=== PATIENT | male | born 2005 | race Caucasian/White ===

== ENCOUNTER 2024-04-06 11:32 | Emergency (ER) | payer OTHER, SELFPAY ==
[2024-04-06 11:33] VITALS: BP 139/79
--- NOTE | 2024-04-06 12:48 | ED.MUSCINJ ---
HPI-Injury
General
Chief Complaint: Musculo-Skeletal Complaint
Source: patient
Time Seen by Provider: 04/06/24 12:38
History of Present Illness-Injury
Initial Injury comments:
19yo right hand dominant male presenting for evaluation of left wrist pain x 1 day. He was in the pool on a floating device when his friend jumped in the pool and landed on his wrist. He has been having persistent pain since that time. Pain is
primarily located at the base of the thumb. No paresthesias. He denies other injuries.
Phy Exam
Physical Exam
Physical Exam:
Left wrist: No deformity or skin changes. +Tenderness at baseline of thumb and snuffbox. ROM of thumb intact but pain is elicited with thumb extension. ROM of wrist intact. Normal sensation and motor function intact in radial, ulnar, and median
nerve distributions. 2+ radial pulse.
General Physical Exam
General Presentation: well appearing and no apparent distress
General age: appears stated age
General Skin: warm and dry
General Habitus: normal
General Mental: alert
Injury Course
Orders/Labs/Results
Orders:
Orders
04/06/24 11:36
Wrist, Left 3 Views CR [CR Wrist - Left Min 3 Views] Urgent
Comment:
Reason For Exam: injury
04/06/24 12:47
Thumb Spica Left-Treatment ONCE
Nursing to Place Non Medication Order As Directed
Physician Order: Please apply velcro thumb spica brace to L wrist
Above order entered?: Yes
MDM/Problems Addressed
Differential Diagnosis Includes:
19yoM here with L wrist pain after an injury yesterday. No deformity on exam and ROM intact. Snuffbox tenderness present on exam. LUE is neurovascularly intact. Differential diagnosis includes but is not limited to: sprain, fracture, dislocation
X-rays obtained which are negative for fracture. He was placed in a velcro thumb spica brace given snuffbox tenderness on exam. Supportive care discussed. Advised f/u with orthopedics.
*Critical Care Note
Total Time (30-74mins, 75-104mins- exclusive of procedures): Not Applicable
ED Attending Note
-
Portions of this chart may have been created with voice recognition software.� Occasional wrong word or��sound alike� substitutions may have occurred due to the inherent limitations of voice recognition software.
Discharge Plan
Departure
Patient Disposition: Home (Routine Discharge)
Date of Disposition: 04/06/24
Time of Disposition: 12:51
Patient with high blood pressure during this ER visit?: No
Discharge Problem:
Injury of left wrist
Instructions: Wrist Sprain ED
Prescriptions:
No Action
No Current Medications
0
Referrals:
Norberto Lugo MD [Active] -
UNKNOWN - PT DOES,NOT KNOW [Family Provider] -
Activity Restrictions/Additional Instructions:
Apply ice to affected area. Wear brace for immobilization. Take Tylenol and ibuprofen for pain.
Please follow-up with orthopedics.
Interventions
Interventions:
*Risk Screen - Suicide Last Done: 04/06/24 11:33
*General Assessment Last Done: 04/06/24 11:33
*Neglect/Abuse Screening Last Done: 04/06/24 11:33
*Nursing Disposition Last Done: 04/06/24 13:01
ED-Musculoskeletal Assessment Last Done: 04/06/24 12:43
Discharge Date and Time
Discharge Date/Time: 04/06/24 13:02
Print Language: SINHALA
== END 2024-04-06 13:02 | disposition home or self-care (01) ==
LOC: EMR 11:32
PROVIDERS: EMERGENCY PHYSICIAN Student in an Organized Health Care Education/Training Program
DX: S69.92XA Unspecified injury of left wrist, hand and finger(s), initial encounter (principal); X58.XXXA Exposure to other specified factors, initial encounter
CPT/HCPCS: 99283; 73110